=== PATIENT | male | born 1990 | race Caucasian/White ===

== ENCOUNTER 2016-08-03 08:11 | Emergency (ER) | payer BC, OTHER ==
[~2016-08-03] VITALS: Ht 165.1 cm; Wt 89.1 kg
[2016-08-03 08:13] VITALS: Ht 165.1 cm; Wt 89.1 kg
[2016-08-03] MEDS ORDERED: IBUPROFEN 600 MG TAB PO ONE (09:00)
--- NOTE | 2016-08-03 09:08 | RADRPT ---
PROCEDURE: XR Ankle. CLINICAL INDICATION: Ankle trauma/injury, pain TECHNIQUE: AP, oblique and lateral views of the right ankle were performed. COMPARISON: None. FINDINGS: Soft tissue swelling around the ankle is seen without fracture or dislocation identified. The osseo us structures are intact. Joint spaces are preserved. IMPRESSION: Soft tissue swelling, without evidence of fracture or dislocation. RPTAT: VV .Marlon Drake MD, MD Date Time Electronically viewed and signed by .Marlon Drake MD, MD on 08/03/2016 09:07 .O/
[2016-08-03] MEDS ORDERED: IBUP-1542 PO (09:20)
--- NOTE | 2016-08-03 15:28 | ERD ---
ER Documentation Chief Complaint Date/Time DATE: 08/03/16 TIME: 15:25 Chief Complaint right ankle PAIN HPI This patient is a 26-year-old male with no significant medical history presenting to the emergency department for right ankle pain after injury 2 days ago. The patient was playing basketball and running when he rolled his ankle outward causing injury. The patient rates his pain 6 out of 10 currently. The patient has taken no medications for relief of symptoms. Pain is relieved by ice and exacerbated by walking. The patient denies all other symptoms currently. There was no head injury or loss of consciousness. ROS All systems reviewed and are negative except as per history of present illness. Medications Home Meds Active Scripts Ibuprofen* (Motrin*) 600 Mg Tab, 600 MG PO Q6, #30 TAB Prov:ROBERT BENNETT PA-C 08/03/16 Allergies Allergies: Coded Allergies: No Known Allergy (Unverified , 08/03/16) PMhx/Soc Medical and Surgical Hx: pt denies Medical Hx, pt denies Surgical Hx History of Surgery: No Anesthesia Reaction: No Hx Neurological Disorder: No Hx Respiratory Disorders: No Hx Cardiac Disorders: No Hx Psychiatric Problems: No Hx Miscellaneous Medical Probl: No Hx Alcohol Use: Yes (SOCIALLY) Hx Substance Use: No Hx Tobacco Use: Yes (SOCIALLY) Smoking Status: Current every day smoker FmHx Noncontributory for chief complaint. Physical Exam Vitals Vital Signs Date Time Temp Pulse Resp B/P Pulse Ox O2 Delivery O2 Flow Rate FiO2 08/03/16 08:13 98.2 89 18 139/90 99 Physical Exam Const: The patient is resting comfortably in no acute distress. Head: Atraumatic Eyes: Normal Conjunctiva ENT: Normal External Ears, Nose and Mouth. Neck: Full range of motion..~ No meningismus. Resp: Clear to auscultation bilaterally Cardio: Regular rate and rhythm, no murmurs Abd: Soft, non tender, non distended. Normal bowel sounds Skin: No petechiae or rashes Back: No midline or flank tenderness Ext: There is edema with associated ecchymosis of the right lateral and medial malleolus. There is tenderness palpation of the lateral and medial malleolus, worse on the medial side. 2+ pedal pulses in the right lower extremity. There is limited range of motion secondary to pain of the right ankle. All other extremities are normal on examination. Neur: Awake and alert Psych: Normal Mood and Affect Results 24 hrs Current Medications Medications (Trade) Dose Ordered Sig/Moises Route PRN Reason Start Time Stop Time Status Last Admin Dose Admin Ibuprofen (Motrin) 600 mg ONCE ONCE PO 08/03/16 09:00 08/03/16 09:01 DC 08/03/16 08:58 Procedures/MDM EMERGENCY DEPARTMENT COURSE / MEDICAL DECISION MAKING: This is a 26-year-old male who comes to the emergency room secondary to complaints of right ankle pain and swelling. The patient was given p.o. ibuprofen in the department. On re-evaluation, the patient was feeling improved. Radiology: PROCEDURE: XR Ankle. CLINICAL INDICATION: Ankle trauma/injury, pain TECHNIQUE: AP, oblique and lateral views of the right ankle were performed. COMPARISON: None. FINDINGS: Soft tissue swelling around the ankle is seen without fracture or dislocation identified. The osseous structures are intact. Joint spaces are preserved. IMPRESSION: Soft tissue swelling, without evidence of fracture or dislocation. RPTAT: VV .Marlon Drake MD, MD Date Time Electronically viewed and signed by .Marlon Drake MD, MD on 08/03/2016 09:07 .O/ CC: ROBERT BENNETT PA-C The primary diagnosis is right ankle pain. Secondary diagnosis is ankle injury I have low suspicion for compartment syndrome, cellulitis, DVT, fracture, or other emergent conditions at this time. Discharge: I have discussed the lab results and diagnostic findings with the patient and answered any questions or concerns. The patient was discharged with a prescription for ibuprofen. The patient was advised to followup with their PMD in 1-2 days and to return to the Emergency Department if there are any new or worsening symptoms. The patient understood and agreed with the diagnosis, treatment and plan. The patient is stable for discharge at this time. Departure Diagnosis: Primary Impression: Ankle pain, right Additional Impression: Ankle injury Condition: Fair Patient Instructions: What Are Ankle Sprains?, Treating Ankle Sprains, Sprain, Ankle, With X-Ray Referrals: [facility] YOU HAVE RECEIVED A MEDICAL SCREENING EXAM AND THE RESULTS INDICATE THAT YOU DO NOT HAVE A CONDITION THAT REQUIRES URGENT TREATMENT IN THE EMERGENCY DEPARTMENT. FURTHER EVALUATION AND TREATMENT OF YOUR CONDITION CAN WAIT UNTIL YOU ARE SEEN IN YOUR DOCTORS OFFICE WITHIN THE NEXT 1-2 DAYS. IT IS YOUR RESPONSIBILITY TO MAKE AN APPOINTMENT FOR FOLOW-UP CARE. IF YOU HAVE A PRIMARY DOCTOR --you should call your primary doctor and schedule an appointment IF YOU DO NOT HAVE A PRIMARY DOCTOR YOU CAN CALL OUR PHYSICIAN REFERRAL HOTLINE AT IF YOU CAN NOT AFFORD TO SEE A PHYSICIAN YOU CAN CHOSE FROM THE FOLLOWING [facility] [address] [facility]. [facility] [address] [facility] [facility] [address]. [facility] [address] [facility] [facility] [address] [facility] [facility] [address] Additional Instructions: Follow-up with your primary care physician within 1 week. Return to the emergency department immediately should you have any new or worsening symptoms, uncontrolled fevers, or other unexplained symptoms. Take all medications as directed. ROBERT BENNETT PA-C Aug 03, 2016 15:28
== END 2016-08-03 09:50 | disposition home or self-care (01) ==
LOC: FTE 08:11
DX: S99.911A Unspecified injury of right ankle, initial encounter (principal); F17.210 Nicotine dependence, cigarettes, uncomplicated; X50.1XXA Overexertion from prolonged static or awkward postures, initial encounter; Y92.9 Unspecified place or not applicable

== ENCOUNTER 2018-02-21 14:51 | Emergency (ER) | END 2018-02-21 16:15 | disposition home or self-care (01) ==